=== PATIENT | male | born 1940 | race Caucasian/White ===

== ENCOUNTER → 2016-12-19 | Outpatient (CLI) | payer MEDICARE ==
--- NOTE | 2016-12-19 12:38 | Diagnostic Imaging Report ---
EXAMINATION: 3 views of the left wrist. INDICATION: Pain around the first carpometacarpal joint. FINDINGS: No fracture, dislocation or radiopaque foreign body is identified. There is joint space narrowing and subchondral sclerosis seen along the carpometacarpal joint at the base of the thumb compatible with osteoarthritis. Other joints demonstrate no significant arthritic changes and normal alignment. 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 Dictated by: Dictated on workstation # [id number]
== END ==
LOC: RAD 12:13
PROVIDERS: ATTEND Nurse Practitioner Family
DX: M18.12 Unilateral primary osteoarthritis of first carpometacarpal joint, left hand (principal)
CPT/HCPCS: 73110